=== PATIENT | male | born 1970 | race Caucasian/White ===

== ENCOUNTER 2017-08-05 13:00 | Inpatient (IN) ==
[2017-08-05 16:12] LABS: Appearance,Urine CLEAR; Bilirubin,Urine NEG (NEG); Color,Urine YELLOW; Glucose,Urine (UA) NEGATIVE (NEG); Leukocyte Esterase,Urine NEG /uL (NEG); Protein,Urine NEG (NEG); Specific Gravity,Urine 1.021 (1.000-1.035); Urine Blood NEG mg/dL (<0.03); Urobilinogen,Urine NEG (NEG)
[2017-08-05 16:58] LABS: Basophils # (Auto) 0 K/mcL (0.0-0.3); Basophils % (Auto) 0.3 % (0.0-2.0); Eosinophils # (Auto) 0.2 K/mcL (0.0-0.7); Eosinophils % (Auto) 3.1 % (0.0-7.0); Granulocytes % (Auto) 57.8 % (38.0-78.0); Lymphocytes # (Auto) 2.3 K/mcL (1.5-4.8); Lymphocytes % (Auto) 32.5 % (15.5-49.0); Mean Cell Volume 90.9 fL (80.0-100.0); Mean Corpuscular HGB Conc 34.1 g/dL (31.0-36.0); Monocytes # (Auto) 0.4 K/mcL (0.1-0.9); Monocytes % (Auto) 6.3 % (1.0-12.0); Platelet Count 242 K/mcL (140-440); Red Cell Distribution Width 12.8 % (11.5-14.5)
[2017-08-05 17:22] LABS: Blood Urea Nitrogen 15 mg/dl (6-20)
[2017-08-11] MEDS ORDERED: PREGABALIN 75 MG CAPSULE PO SCH (05:00)
[2017-08-11] MEDS ORDERED: oxyCODONE 10 MG TAB.ER.12H PO SCH (05:00)
[2017-08-11] MEDS ORDERED: ACETAMINOPHEN 500 MG TABLET PO SCH (05:00)
[2017-08-11] MEDS ORDERED: ceFAZolin 1 GM VIAL IV SCH (05:00)
[2017-08-11] MEDS ORDERED: KETOROLAC 30 MG, ROPIVACAINE HCL/PF 49.5 ML, EPINEPHrine 0.5 MG, 0.9 % SODIUM CHLORIDE ... IJ SCH (06:30)
[2017-08-11] MEDS ORDERED: SCOPOLAMINE 1 PATCH PATCH TOPICAL ONE (08:55)
[2017-08-11] MEDS ORDERED: DEXAMETHASONE 10 MG/ML VIAL IV ONE (09:30)
[2017-08-11] MEDS ORDERED: PROPOFOL 200 MG/20 ML VIAL IV ONE (09:30)
[2017-08-11] MEDS ORDERED: MIDAZOLAM 5 MG/5 ML VIAL IV ONE (09:30)
[2017-08-11] MEDS ORDERED: ONDANSETRON 4 MG/2 ML VIAL IV ONE (09:30)
[2017-08-11] MEDS ORDERED: ROPIVACAINE HCL/PF 20 ML VIAL IJ ONE (09:30)
[2017-08-11] MEDS ORDERED: LIDOCAINE HCL/PF 100 MG/5 ML SYRINGE IV ONE (09:30)
[2017-08-11] MEDS ORDERED: TRANEXAMIC ACID 1,000 MG/10 ML VIAL IV ONE ×2 (09:30→11:41)
[2017-08-11] MEDS ORDERED: GENTAMICIN SULFATE 800 MG/20 ML VIAL IR ONE (09:59)
[2017-08-11] MEDS ORDERED: METOPROLOL TARTRATE 5 MG/5 ML VIAL IV PRN (10:46)
[2017-08-11] MEDS ORDERED: HYDROmorphone 2 MG/ML VIAL IV PRN (10:46)
[2017-08-11] MEDS ORDERED: MEPERIDINE 25 MG/ML SYRINGE IV PRN (10:46)
[2017-08-11] MEDS ORDERED: ONDANSETRON 4 MG/2 ML VIAL IV PRN ×2 (10:46→11:41)
[2017-08-11] MEDS ORDERED: METHOCARBAMOL 1,000 MG/10 ML VIAL IV PRN (10:46)
[2017-08-11] MEDS ORDERED: PROMETHAZINE 25 MG/ML VIAL IV PRN (10:46)
[2017-08-11] MEDS ORDERED: ATROPINE SULFATE 0.4 MG/ML VIAL IV PRN (10:46)
[2017-08-11] MEDS ORDERED: FLUMAZENIL 0.1 MG/ML ML IV PRN (10:46)
[2017-08-11] MEDS ORDERED: diphenhydrAMINE 50 MG/ML VIAL IV PRN (10:46)
[2017-08-11] MEDS ORDERED: ePHEDrine 50 MG/ML AMPUL IV PRN (10:46)
[2017-08-11] MEDS ORDERED: IPRATROPIUM/ALBUTEROL 3 ML AMPUL.NEB NEB PRN (10:46)
[2017-08-11] MEDS ORDERED: NALOXONE HCL 0.4 MG/ML VIAL IV PRN (10:46)
[2017-08-11] MEDS ORDERED: KETOROLAC 15 MG/ML VIAL IV PRN (10:46)
[2017-08-11] MEDS ORDERED: fentaNYL 100 MCG/2 ML VIAL IV PRN (10:46)
[2017-08-11] MEDS ORDERED: LACTATED RINGERS 1,000 ML IV SCH (11:00)
[2017-08-11] MEDS ORDERED: TEMAZEPAM 15 MG CAPSULE PO PRN (11:41)
[2017-08-11] MEDS ORDERED: ONDANSETRON ODT 4 MG TABLET SL PRN (11:41)
[2017-08-11] MEDS ORDERED: ACETAMINOPHEN 325 MG TABLET PO PRN (11:41)
[2017-08-11] MEDS ORDERED: FLEETS ADULT ENEMA PR PRN (11:41)
[2017-08-11] MEDS ORDERED: BISACODYL 10 MG SUPP.RECT PR PRN (11:41)
[2017-08-11] MEDS ORDERED: BENZOCAINE/MENTHOL 1 LOZENGE PO PRN (11:41)
[2017-08-11] MEDS ORDERED: POLYETHYLENE GLYCOL 3350 17 GM PACKET PO PRN (11:41)
[2017-08-11] MEDS ORDERED: MAGNESIUM HYDROXIDE 30 ML ORAL.SUSP PO PRN (11:41)
--- NOTE | 2017-08-11 11:41 | Brief Operative Note ---
Date of procedure: 08/11/17 Pre-op diagnosis: right knee djd and old lateral plateau fx Post-op diagnosis: same Procedure: right knee hard parker removal and tka with robotic Grafts/Implants: Yes Anesthesia: GETA Complications Description: 08/11/17 11:41 none Surgeon: Kamari Daily [employer] Unit Operator: Papi Sun Estimated blood loss (cc): 52 Tourniquet Time (Minutes): 86 Specimens Removed/Pathology: none sent Condition: stable Disposition: PACU
[2017-08-11] MEDS ORDERED: PROMETHAZINE 25 MG TABLET PO PRN (11:45)
[2017-08-11] MEDS ORDERED: IBUPROFEN 200 MG TABLET PO PRN (11:45)
[2017-08-11] MEDS ORDERED: ACETAMINOPHEN W/CODEINE #3 1 TABLET PO PRN (11:45)
[2017-08-11] MEDS ORDERED: traMADol 50 MG TABLET PO PRN (11:45)
--- NOTE | 2017-08-11 12:27 | Operative Note ---
DATE OF OPERATION: 08/11/2017 PREOPERATIVE DIAGNOSIS: Right knee degenerative arthritis with a tibial plateau fracture. POSTOPERATIVE DIAGNOSIS: Right knee degenerative arthritis with a tibial plateau fracture. PROCEDURE: Right total knee arthroplasty and hardware removal of the tibial plate. SURGEON: Kamari Daily M.D. CERTIFIED WELDER: Papi Sun PA-C. ANESTHESIA: General LMA anesthesia. COMPLICATIONS: None. TOURNIQUET TIME: 86 minutes. ESTIMATED BLOOD LOSS: About 50-100 mL. BLOOD PRODUCTS GIVEN: None. DESCRIPTION OF PROCEDURE: The patient was brought to the operating room, put to sleep with general LMA anesthesia. A time out was performed confirming hardware removal and total knee arthroplasty on the right side. We made an incision through his prior scar and then exposed the plate. We removed all the screws from the plate and the hardware was removed. We then closed the fascial layer with 0 Vicryl and closed the skin with 2-0 Vicryl and irma. We had a second incision midline. We moved this slightly more medially to give us a bridge of skin. This was elevated and made a midvastus approach to the knee. The case was very difficult given the size of the patient's knee. We then subluxed the patella laterally. We brought in the probe and placed our intra-articular sensors, as well as our arrays above and below the knee. We registered the center of hip rotation, registered the lateral and medial malleoli, thirty points on the femur, and thirty points on the tibia. We registered the intra-articular pins and the robot as we brought it in. We then made our tibial cut and then we made our femoral cuts. These bony fragments were removed. We then prepared the patella which was cut from 24 mm to 14 mm. An oval implant was chosen, 38 mm in diameter. This fit very nicely. We made a small chamfer cut laterally. We then cemented into place all the components after being perfectly balanced, achieving 1 degree of extension, and removed excess cement. We placed an 11 poly. This matched and balanced the knee perfectly in varus-valgus. Patient tolerated this well without complication. We irrigated and let the tourniquet down at 86 minutes. The wounds were closed with Stratafix and 2-0 Vicryl and then irma. Sterile bandage was applied. RBH:bryan Job ID: [id number] Doc ID: [id number] Kamari Daily MD
--- NOTE | 2017-08-11 12:33 | XRay Report ---
CLINICAL INFORMATION: Postsurgical follow-up TECHNIQUE: AP and lateral right knee COMPARISON: None. FINDINGS: Status post right total knee arthroplasty. Prosthetic complements are in anatomic positions. There are multiple screw tracks. There is postsurgical soft tissue and intra-articular gas. There are skin irma anteriorly IMPRESSION: Status post right total knee arthroplasty Interpreted and Authenticated by: Julian Hutchinson 08/11/17
[2017-08-11] MEDS: 0.45 % SODIUM CHLORIDE 1,000 ML IV SCH ×2 (12:51→23:56)
[2017-08-11] MEDS: KETOROLAC 15 MG/ML VIAL IV SCH ×2 (13:02→19:00)
[2017-08-11] MEDS: 0.9 % SODIUM CHLORIDE 10 ML SYRINGE IV SCH ×2 (14:03→20:55)
[2017-08-11] MEDS: HYDROcodone/APAP 10/325MG TABLET PO PRN ×2 (14:04→22:02)
[2017-08-11] MEDS: ceFAZolin 1 GM VIAL IV SCH (17:03)
[2017-08-11] MEDS: FERROUS SULFATE 325 MG TABLET PO SCH (18:03)
[2017-08-11] MEDS ORDERED: KETOROLAC 30 MG/ML VIAL ONE (18:57)
[2017-08-11] MEDS: ASPIRIN 325 MG ENTERIC COATED TABLET PO SCH (20:35)
[2017-08-11] MEDS: DOCUSATE SODIUM 100 MG CAPSULE PO SCH (20:35)
[2017-08-11] MEDS ORDERED: SENNOSIDES 1 TABLET PO SCH (21:00)
[2017-08-12] MEDS: KETOROLAC 30 MG/ML VIAL IV SCH ×3 (00:35→11:42)
[2017-08-12] MEDS: ceFAZolin 1 GM VIAL IV SCH (00:36)
[2017-08-12] MEDS: 0.9 % SODIUM CHLORIDE 10 ML SYRINGE IV SCH ×4 (00:37→15:26)
[2017-08-12] MEDS: HYDROcodone/APAP 10/325MG TABLET PO PRN ×4 (03:25→15:26)
[2017-08-12] MEDS: 0.45 % SODIUM CHLORIDE 1,000 ML IV SCH (06:49)
--- NOTE | 2017-08-12 07:27 | Orthopedic Progress Note ---
Subjective Patient information: Note initiated : 08/12/17 at 7:25 am Service Date, if different from initiated Date: [] Patient: Eloy Fletcher 47 y/o M admitted on 08/11/17 for Tariq Robotic Right Total Knee Arthroplasty . Chief Complaint: [Pt is stable this morning on post operative day 1 without any significant concerns or complaints. Patients vital signs have remained stable. Patients dressing is dry and is grossly instact from a neurovascular and motor standpoint. Patients 10 point ROS is otherwise negative. ] Objective Vital signs: Vital Signs Temp Pulse Resp BP BP Pulse Ox 08/12/17 07:00 78 16 96 08/12/17 06:57 97.9 F 74 12 126/66 94 08/12/17 06:53 96 08/12/17 03:46 98.2 F 85 12 120/72 94 08/12/17 00:00 98.7 F 92 H 12 120/72 91 08/11/17 20:00 98.3 F 84 12 109/77 92 08/11/17 19:00 92 08/11/17 16:00 85 109/85 96 08/11/17 15:42 96 08/11/17 14:34 74 105/73 96 08/11/17 14:19 69 119/82 97 08/11/17 14:04 73 119/87 97 08/11/17 13:49 67 115/75 95 08/11/17 13:34 63 119/80 95 08/11/17 13:19 66 114/79 95 08/11/17 13:11 96 08/11/17 13:04 71 122/91 99 08/11/17 12:49 85 120/85 95 08/11/17 12:36 97.3 F 71 12 121/73 96 08/11/17 12:31 97.3 F 76 14 118/75 93 08/11/17 12:26 75 16 119/74 99 08/11/17 12:21 81 16 121/91 99 08/11/17 12:16 70 12 124/81 100 08/11/17 12:11 72 18 120/76 100 08/11/17 12:06 71 12 133/71 98 08/11/17 12:01 97.7 F 75 11 L 115/75 90 08/11/17 08:00 97.9 F 79 18 129/89 96 Intake and Output 0319/18 03/20/18 03/20/18 21:59 05:59 13:59 Intake Total 750 / 750 100 / 100 Output Total 875 / 875 750 / 750 Balance -125 / -125 100 / 100 -750 / -750 Intake: Oral 750 / 750 100 / 100 Output: Void Amount 875 / 875 750 / 750 Other: Meal Dinner Percent of Meal Consumed 75% Feeding Ability Independent # Voids 1 Weight 226 lb Intake & Output: Intake & Output 08/11/17 08/12/17 08/12/17 21:59 05:59 13:59 Intake Total 750 / 750 100 / 100 Output Total 875 / 875 750 / 750 Balance -125 / -125 100 / 100 -750 / -750 Weight 226 lb Intake: Oral 750 / 750 100 / 100 Output: Void Amount 875 / 875 750 / 750 Other: Meal Dinner Percent of Meal Consumed 75% Feeding Ability Independent # Voids 1 Incision clean and dry: Yes Dressing: Yes clean, Yes dry Weight bearing status: full Neurological exam IM: Yes motor sensory intact, Yes neurovascular intact Extremities exam IM: Yes Foot pink and warm, Yes neurovascular intact - Labs CBC & BMP: 08/12/17 04:40 08/05/17 13:44 Labs: Orthopedic Labs 08/05/17 13:44 PT 13.1 INR 1.0 APTT 28 08/12/17 08/05/17 04:40 13:44 Hgb 14.9 Hct 34.9 L 43.7 Assessment and Plan (1) Hx of total knee arthroplasty The patient has been educated regarding dressing care, Physical Therapy recommendations, home exercises, restrictions, and follow up appointments. The patient has had all necessary DME prescribed. The patient has remained stable during their hospital course. The patient was discharge with a stable exam. Status: Acute
--- NOTE | 2017-08-12 07:29 | Discharge Summary ---
Ortho Discharge - TKA - Patient Instructions Diet: Regular Diet Activity: activity as tolerated, weight bearing as tolerated Total Knee Protocol: For Total Knee: Start ROM GLYNN with stationary bike or rocking chair. Work on gaining full extension of knee. Posterior dislocation precautions provided. Hip abductor strengthening and gait training instructions provided. Apply Cryocuff as instructed. Dressing Care: May shower in 2 days, Aquacel Ag - leave on for 5 days Additional Instructions: CPM for home use - Problem Maintenance (1) Hx of total knee arthroplasty Status: Acute - Follow Up Plan Follow Up Appointments: Kamari Daily MD [Physician] - 08/26/17 9:30 am Disposition: Home, Self-Care Prognosis: Good Rehab Potential: Good I certify that the patient requires SNF services: No Overall status at discharge: patient is progressing back to baseline - Orders For Discharge Prescriptions: Aspirin [Ecotrin] 325 mg PO BID #60 tab.ec Docusate Sodium [Colace] 100 mg PO BID #60 cap HYDROcodone/APAP 10/325MG [[place] 10-325Mg] 1 - 2 tab PO Q4HP PRN #75 tab PRN Reason: Pain Level 3-6
[2017-08-12] MEDS ORDERED: OMEPRAZOLE 20 MG CAPSULE PO SCH (07:30)
[2017-08-12] MEDS: DOCUSATE SODIUM 100 MG CAPSULE PO SCH (08:31)
[2017-08-12] MEDS: FERROUS SULFATE 325 MG TABLET PO SCH (08:31)
[2017-08-12] MEDS: ASPIRIN 325 MG ENTERIC COATED TABLET PO SCH (08:31)
[2017-08-12] MEDS ORDERED: SENNOSIDES 1 TABLET PO SCH (09:00)
== END 2017-08-12 15:46 | disposition home or self-care (01) | DRG 470 ==
LOC: MEDSUR 08-11 07:35 → EDSTATUS 08-11 12:30
PROVIDERS: ADMIT Orthopaedic Surgery; ATTEND Orthopaedic Surgery